=== PATIENT | female | born 1965 | race Caucasian/White ===

== ENCOUNTER 2016-08-12 21:54 | Emergency (ER) | payer OTHER ==
[~2016-08-12] VITALS: Ht 154.9 cm; Wt 75.0 kg
[2016-08-12 22:04] VITALS: Ht 154.9 cm; Wt 75.0 kg
[2016-08-12] MEDS ORDERED: KETOROLAC 30 MG INJ IM STA (23:04)
[2016-08-12 23:17] LABS: URINE BLOOD (Dip) POC Negative (NEGATIVE)
[2016-08-12] MEDS ORDERED: HYDROCODONE/APAP (5/325) TAB PO ONE (23:30)
--- NOTE | 2016-08-12 23:33 | RADRPT ---
PROCEDURE: X-ray right knee CLINICAL INDICATION: Right knee pain with reference marker at the medial aspect of the right knee. TECHNIQUE: 3 views right knee COMPARISON: None FINDINGS: No acute fracture or dislocation. Soft tissues unremarkable. IMPRESSION: No acute fracture. RPTAT: [facility] Physician Balbina Date Time Electronically viewed and signed by Physician Balbina on 08/12/2016 23:32 RS/
--- NOTE | 2016-08-12 23:50 | ERD ---
ER Documentation Chief Complaint Date/Time DATE: 08/12/16 TIME: 23:46 Chief Complaint right knee pain had knee sprain last month [facility] Patient is a 51-year-old female with a past medical history of hypertension and diabetes and chronic back pain who presents to the ED with right knee pain 1 month. Patient states that she hit her right knee against a sprinkler 1 month ago [facility] any treatment for her knee and was diagnosed with a knee sprain. She denies any new injury however she states that she still has knee pain. She has taken ibuprofen for her symptoms which has helped minimally as well as diclofenac tablets. Denies fever or chills. Denies chest pain or cough or shortness of breath. Denies pain above or below the knee joint. States that she is able to ambulate but it hurts. Denies headache or dizziness or syncopal episode. No other complaints. ROS All systems reviewed and are negative except as per history of present illness. Allergies Allergies: Coded Allergies: No Known Allergy (Unverified , 03/17/13) PMhx/Soc History of Surgery: No Anesthesia Reaction: No Hx Neurological Disorder: No Hx Respiratory Disorders: No Hx Cardiac Disorders: Yes (Hypertension) Hx Psychiatric Problems: No Hx Miscellaneous Medical Probl: Yes (Diabetes) Hx Alcohol Use: No Hx Substance Use: No Hx Tobacco Use: No Smoking Status: Never smoker FmHx Family History: No coronary disease, No diabetes, No other Physical Exam Vitals Vital Signs Date Time Temp Pulse Resp B/P Pulse Ox O2 Delivery O2 Flow Rate FiO2 08/12/16 22:04 98.4 98 20 185/83 98 Physical Exam GENERAL: Well-developed, well-nourished female. Appears in no acute distress. HEAD: Normocephalic, atraumatic. EYES: Pupils are equally reactive bilaterally. EOMs grossly intact. No conjunctival erythema. ENT: Moist mucous membranes. No uvula deviation. No kissing tonsils. No exudates. NECK: Supple. No lymphadenopathy or thyromegaly. No meningismus. negative kernig. negative brudinski. LUNG: Clear to auscultation bilaterally. No rhonchi, wheezing, rales or coarse breath sounds. HEART: Regular rate and rhythm. No murmurs, rubs or gallops. Extremities: Equal pulses bilaterally. No peripheral clubbing, cyanosis or edema. No unilateral leg swelling. Tenderness to the anterior right knee. Pain with extreme flexion and extension. No warmth or swelling or erythema. No step-offs or deformities. No pain above or below the right knee. NEUROLOGIC: Alert and oriented. Moving all four extremities. 5/5 strength in all extremities. Normal speech. unSteady gait. SKIN: Normal color. Warm and dry. No rashes or lesions. Capillary refill < 2 seconds Results 24 hrs Laboratory Tests Test 08/12/16 23:21 Bedside Urine pH (LAB) 7.0 Bedside Urine Protein (LAB) Negative Bedside Urine Glucose (UA) Negative Bedside Urine Ketones (LAB) Negative Bedside Urine Blood Negative Bedside Urine Nitrite (LAB) Negative Bedside Urine Leukocyte Esterase (L Negative Current Medications Medications (Trade) Dose Ordered Sig/[place] Route PRN Reason Start Time Stop Time Status Last Admin Dose Admin Ketorolac Tromethamine (Toradol) 30 mg ONCE STAT IM 08/12/16 23:04 08/12/16 23:06 DC 08/12/16 23:20 Acetaminophen/ Hydrocodone Bitart ([place] (5/325)) 1 tab ONCE ONCE PO 08/12/16 23:30 08/12/16 23:31 DC 08/12/16 23:20 Procedures/MDM ER COURSE: I kept the patient and/or family informed of laboratory and diagnostic imaging results throughout the emergency room course. IMAGING STUDIES [place] [id number] Radiology Main Line: [phone] DIAGNOSTIC IMAGING REPORT Patient: ABBE CHOWDARY : 1965 Age: 51 Sex: F MR #: [id number] DOS: 08/12/16 2308 Ordering MD: ZENOBIA QUINN PA-C Location: [facility] Room/Bed: PROCEDURE: X-ray right knee CLINICAL INDICATION: Right knee pain with reference marker at the medial aspect of the right knee. TECHNIQUE: 3 views right knee COMPARISON: None FINDINGS: No acute fracture or dislocation. Soft tissues unremarkable. IMPRESSION: No acute fracture. RPTAT: [facility] Physician Balbina Date Time Electronically viewed and signed by Physician Balbina on 08/12/2016 23:32 RS/ CC: ZENOBIA QUINN PA-C Patient given Toradol and [place]. Tolerated well with no adverse reaction MEDICAL DECISION MAKING: This is a 51-year-old who presents with right knee pain 1 month after sustaining an injury where she hit her knee against a sprinkler. Vital signs were reviewed. Patient is afebrile. Patient is not hypoxic. She is not toxic or ill-appearing. X-rays of by radiologist unremarkable for fracture dislocation. Patient has knee pain of unknown etiology likely muscle strain versus sprain versus contusion. However cannot rule out tendon or ligament injury. Low suspicion for dislocation, fracture, septic joint, compartment syndrome, osteomyelitis, cellulitis, avascular necrosis, neurological injury, vascular injury, tendon laceration. Patient will be given a knee immobilizer and crutches. She was neurovascularly intact post placement. DISCHARGE: At this time, patient is stable for discharge and outpatient management with no new complaints during the ER course. Patient was sent home with Naprosyn, knee immobilizer and crutches and a copy of imaging sites and to follow-up with orthopedics for further evaluation.. Patient will be discharged home with instructions to recheck for new or worsening symptoms such as fever, nausea, weakness, LOC and to follow up with primary care in the next 1-2 days. Patient was advised to return to the ER for any new or worsening symptoms. Plan was discussed and patient and/or family understands and agrees. Home instructions were given. Departure Diagnosis: Primary Impression: Knee pain Laterality: right Chronicity: acute Qualified Code: M25.561 - Acute pain of right knee Condition: Stable ZENOBIA QUINN PA-C Aug 12, 2016 23:50
[2016-08-12] MEDS ORDERED: DICL100G37 TOP (23:51)
[2016-08-12] MEDS ORDERED: NAPR-260 PO (23:51)
== END 2016-08-13 00:23 | disposition home or self-care (01) ==
LOC: FTE 21:54
DX: M25.561 Pain in right knee (principal); I10 Essential (primary) hypertension; E11.9 Type 2 diabetes mellitus without complications
CPT/HCPCS: 29505; 73562; 81003; J1885; Z7610; 96372

== ENCOUNTER → 2017-05-27 | Outpatient (CLI) | END | disposition home or self-care (01) ==